=== PATIENT | female | born 1940 | race Caucasian/White ===

== ENCOUNTER → 2020-07-10 | Outpatient (CLI) | payer MEDICARE, OTHER ==
[~2020-07-10] MED LIST: HYDROCODON-ACE1 EAC4 PO
== END ==
LOC: EMI 10:56
DX: R41.89 Other symptoms and signs involving cognitive functions and awareness (principal); G30.0 Alzheimer's disease with early onset; R41.3 Other amnesia
CPT/HCPCS: 70551

== ENCOUNTER 2021-01-28 13:54 | Emergency (ER) | payer MEDICARE, OTHER ==
[2021-01-28 14:40] LABS: HEMOGLOBIN 13.2 gm/dl (12.3-15.3); RED BLOOD COUNT 4.46 M/UL (4.00-5.10); WHITE BLOOD COUNT 7.2 K/UL (4.5-11.0)
[2021-01-28 14:58] LABS: BUN/CREATININE RATIO 17 (0-10)
[2021-01-28] MEDS ORDERED: OMNICEF 300 MG300 MG PO (17:02)
== END 2021-01-28 17:31 | disposition home or self-care (01) ==
LOC: ER1 13:54
PROVIDERS: Physician Assistant
DX: N39.0 Urinary tract infection, site not specified (principal); Z79.899 Other long term (current) drug therapy
CPT/HCPCS: 51702; 80053; 81001; 85025; 87040; 87077; 87086; 87186; 96374; 99284; J0696

== ENCOUNTER 2021-05-10 16:44 | Emergency (ER) | payer MEDICARE, OTHER ==
[~2021-05-10 16:44] MED LIST changes: +OMNICEF 300 MG300 MG PO
[2021-05-10 18:29] LABS: HEMOGLOBIN 12.2 gm/dl (12.3-15.3); RED BLOOD COUNT 4.05 M/UL (4.00-5.10); WHITE BLOOD COUNT 5.6 K/UL (4.5-11.0)
[2021-05-10 19:01] LABS: BUN/CREATININE RATIO 21 (0-10)
[2021-05-10] MEDS ORDERED: OMNICEF 300 MG300 MG PO (20:20)
== END 2021-05-10 21:05 | disposition home or self-care (01) ==
LOC: ER1 16:44
PROVIDERS: Emergency Medicine
DX: N30.90 Cystitis, unspecified without hematuria (principal); G30.0 Alzheimer's disease with early onset; F02.80 Dementia in other diseases classified elsewhere, unspecified severity, without behavioral disturbance, psychotic disturbance, mood disturbance, and anxiety; Z20.822 Contact with and (suspected) exposure to COVID-19
CPT/HCPCS: 36600; 70450; 71045; 80053; 81001; 82140; 82550; 82553; 82803; 83605; 83690; 83735; 83874; 83880; 84100; 84439; 84443; 84484; 85025; 85610; 85730; 87040; 87086; 93005; 96374; 99285; J0696; U0002

== ENCOUNTER 2022-01-17 18:42 | Inpatient (IN) | payer MEDICARE, OTHER ==
[~2022-01-17] VITALS: Ht 177.8 cm; Wt 61.4 kg
[2022-01-17 19:45] LABS: RED BLOOD COUNT 4.22 M/UL (4.00-5.10); WHITE BLOOD COUNT 6.5 K/UL (4.5-11.0)
[2022-01-17 22:53] LABS: BUN/CREATININE RATIO 24 (0-10)
[2022-01-17] MEDS ORDERED: ZOFRAN ODT 4 MG4 MG GT (23:25)
[2022-01-17] MEDS ORDERED: VIBRAMYCIN 100100 MG GT (23:25)
[2022-01-18] MEDS ORDERED: AVIDOXY100 MG PO (11:29)
[2022-01-18] MEDS ORDERED: ONDANSETRON ODT4 MG PO (11:29)
[2022-01-18] MEDS ORDERED: DONEPEZIL HCL10 MG PO (11:30)
[2022-01-18] MEDS ORDERED: NAMENDA 5 MG TAB5 MG PO (11:30)
[2022-01-18] MEDS ORDERED: TYLENOL EXTRA500 MG PO (11:30)
[2022-01-18] MEDS ORDERED: MELOXICAM15 MG PO (11:30)
[2022-01-19 07:18] LABS: HEMOGLOBIN 11.6 gm/dl (12.3-15.3); RED BLOOD COUNT 3.78 M/UL (4.00-5.10); WHITE BLOOD COUNT 5.2 K/UL (4.5-11.0)
[2022-01-19 07:31] LABS: BUN/CREATININE RATIO 11 (0-10)
[2022-01-20 06:44] LABS: HEMOGLOBIN 11.7 gm/dl (12.3-15.3); RED BLOOD COUNT 3.74 M/UL (4.00-5.10); WHITE BLOOD COUNT 3.8 K/UL (4.5-11.0)
[2022-01-20 07:33] LABS: BUN/CREATININE RATIO 8 (0-10)
[2022-01-21 06:39] LABS: HEMOGLOBIN 10.5 gm/dl (12.3-15.3); RED BLOOD COUNT 3.53 M/UL (4.00-5.10); WHITE BLOOD COUNT 4.6 K/UL (4.5-11.0)
[2022-01-21 06:59] LABS: BUN/CREATININE RATIO 8 (0-10)
[2022-01-22 10:51] LABS: HEMOGLOBIN 12.1 gm/dl (12.3-15.3); WHITE BLOOD COUNT 4.9 K/UL (4.5-11.0)
[2022-01-22 10:56] LABS: RED BLOOD COUNT 3.97 M/UL (4.00-5.10)
[2022-01-22 11:37] LABS: BUN/CREATININE RATIO 10 (0-10)
[2022-01-22] MEDS ORDERED: MEGACE 400400 MG/10 PO (12:52)
[2022-01-22] MEDS ORDERED: KLOR-CON M2020 MEQ PO (12:52)
[2022-01-22] MEDS ORDERED: OMNICEF 300 MG300 MG PO (12:52)
[2022-01-22] MEDS ORDERED: REMERON 15 MG T15 MG PO (12:52)
== END 2022-01-22 15:29 | disposition home or self-care (01) | DRG 690 ==
LOC: ER1 18:42 → MED SURG 4 01-18 02:14 → CDU 01-18 02:40 → MED SURG 4 01-18 02:41
PROVIDERS: Family Medicine; Internal Medicine; Physician Assistant Medical; ADMIT Internal Medicine
DX: N30.00 Acute cystitis without hematuria (principal); G93.49 Other encephalopathy; E87.0 Hyperosmolality and hypernatremia; Z20.822 Contact with and (suspected) exposure to COVID-19; E86.0 Dehydration; R62.7 Adult failure to thrive; F03.90 Unspecified dementia, unspecified severity, without behavioral disturbance, psychotic disturbance, mood disturbance, and anxiety; M81.0 Age-related osteoporosis without current pathological fracture; B96.1 Klebsiella pneumoniae [K. pneumoniae] as the cause of diseases classified elsewhere; L89.151 Pressure ulcer of sacral region, stage 1; E87.6 Hypokalemia; M19.90 Unspecified osteoarthritis, unspecified site; Z82.49 Family history of ischemic heart disease and other diseases of the circulatory system; Z74.01 Bed confinement status
CPT/HCPCS: 36415; 71250; 80048; 80053; 81001; 83735; 84100; 84439; 84443; 85025; 85027; 87077; 87086; 87186; 92526; 92610; 93005; 96365; 96375; 97161; 97530-GP-CQ; 99285; C9113; G0378; J0696; J1650; J2405

== ENCOUNTER 2022-03-16 16:47 | Inpatient (IN) | payer MEDICARE, OTHER ==
[~2022-03-16] VITALS: Ht 182.9 cm; Wt 54.0 kg
[~2022-03-16 16:47] MED LIST changes: +AVIDOXY100 MG PO; +DONEPEZIL HCL10 MG PO; +KLOR-CON M2020 MEQ PO; +MEGACE 400400 MG/10 PO; +MELOXICAM15 MG PO; +NAMENDA 5 MG TAB5 MG PO; +ONDANSETRON ODT4 MG PO; +REMERON 15 MG T15 MG PO; +TYLENOL EXTRA500 MG PO; +VIBRAMYCIN 100100 MG GT; +ZOFRAN ODT 4 MG4 MG GT
[2022-03-16 17:33] LABS: HEMOGLOBIN 15.7 gm/dl (12.3-15.3); RED BLOOD COUNT 5.11 M/UL (4.00-5.10); WHITE BLOOD COUNT 15.7 K/UL (4.5-11.0)
[2022-03-17 09:01] LABS: RED BLOOD COUNT 4.24 M/UL (4.00-5.10)
[2022-03-17] MEDS ORDERED: DULOXETINE HCL20 MG PO (11:13)
[2022-03-17] MEDS ORDERED: MEGESTROL PO (13:43)
[2022-03-17] MEDS ORDERED: MIRTAZAPINE15 MG PO (13:45)
[2022-03-17 21:24] LABS: BUN/CREATININE RATIO 51 (0-10)
[2022-03-18 07:26] LABS: BUN/CREATININE RATIO 40 (0-10)
[2022-03-18 14:17] LABS: HEMOGLOBIN 12.3 gm/dl (12.3-15.3); RED BLOOD COUNT 4.03 M/UL (4.00-5.10)
[2022-03-18 14:18] LABS: WHITE BLOOD COUNT 8.1 K/UL (4.5-11.0)
[2022-03-18 14:34] LABS: BUN/CREATININE RATIO 26 (0-10)
[2022-03-19 03:38] LABS: BUN/CREATININE RATIO 22 (0-10)
[2022-03-19 16:59] LABS: BUN/CREATININE RATIO 20 (0-10)
[2022-03-20 06:27] LABS: BUN/CREATININE RATIO 17 (0-10)
[2022-03-21] MEDS ORDERED: PERCOCET 5/325 T1 EA PO (08:59)
[2022-03-21 11:42] LABS: BUN/CREATININE RATIO 14 (0-10)
[2022-03-21] MEDS ORDERED: NYSTATIN60 GM TOP (19:27)
[2022-03-22 02:14] LABS: BUN/CREATININE RATIO 16 (0-10)
[2022-03-23 02:30] LABS: BUN/CREATININE RATIO 24 (0-10)
[2022-03-24 07:52] LABS: BUN/CREATININE RATIO 20 (0-10)
[2022-03-24] MEDS ORDERED: ATIVAN1 MG PO (09:54)
[2022-03-24] MEDS ORDERED: HYDROCODON-ACE1 EAC4 PO (11:25)
--- NOTE | 2022-03-24 11:26 | NUR ---
CALLED PT'S PHARMACY PER TO CANCEL A PREVIOUSLY CALLED PRESCRIPTION OF PERCOCET PER FAMILY REQUEST. TALKED TO PHARMACIST AT [facility] AND GOT THE PRESCRIPTION CANCELED. TO CALL IN [address]
--- NOTE | 2022-03-24 15:18 | NUR ---
PT DISCHARGED HOME TO HOSPICE CARE, REPORT CALLED TO ED WITH [facility] AT 1500. NG TUBE AND IVS REMOVED PER ORDER, ESCAMILLA LEFT IN PLACE PER ORDER FROM DR. NUÑEZ. DISCHARGE INFORMATION AND EDUCATION DONE WITH THE DAUGHTER AT BEDSIDE. PT MOVED TO [facility] EASILY WITH HELP FROM EMS.
== END 2022-03-24 14:57 | DRG 871 ==
LOC: ER1 16:47 → PROG CARE 18:37 → CDU 18:37 → PROG CARE 23:35
PROVIDERS: Emergency Medicine; Internal Medicine; Internal Medicine Nephrology; ADMIT Internal Medicine
DX: A41.89 Other specified sepsis (principal); E43 Unspecified severe protein-calorie malnutrition; Z20.822 Contact with and (suspected) exposure to COVID-19; Z51.5 Encounter for palliative care; J69.0 Pneumonitis due to inhalation of food and vomit; G93.41 Metabolic encephalopathy; J18.9 Pneumonia, unspecified organism; N17.9 Acute kidney failure, unspecified; E87.0 Hyperosmolality and hypernatremia; N30.00 Acute cystitis without hematuria; E87.2 Acidosis; R65.20 Severe sepsis without septic shock; E86.1 Hypovolemia; R13.10 Dysphagia, unspecified; M81.0 Age-related osteoporosis without current pathological fracture; M19.90 Unspecified osteoarthritis, unspecified site; E83.39 Other disorders of phosphorus metabolism; F03.90 Unspecified dementia, unspecified severity, without behavioral disturbance, psychotic disturbance, mood disturbance, and anxiety; E86.0 Dehydration; Z87.440 Personal history of urinary (tract) infections; Z82.49 Family history of ischemic heart disease and other diseases of the circulatory system
CPT/HCPCS: 36415; 51702; 70450; 71045; 71270; 74018; 80048; 80053; 80202; 81001; 82550; 82553; 82570; 83605; 83690; 83735; 83880; 83935; 84100; 84300; 84484; 85025; 85027; 87040; 87077; 87086; 87186; 92526; 92610; 93005; 94640; 94664; 94760; 96372; 96374; 96375; 96376; 97162; 97167; 97530-GP-CQ; 99285; A6212; J1644; J2185; J3370; J3480; J7030; J7070; Q9967; U0002